=== PATIENT | female | born 1945 | race Caucasian/White ===

== ENCOUNTER 2017-02-12 17:54 | Emergency (ER) | payer MEDICARE, BC ==
--- NOTE | 2017-02-12 19:59 | RAD ---
HISTORY: Fall, left hip pain, lumbar pain COMPARISONS: None TECHNIQUE: Multiple contiguous axial CT scans were obtained of the lumbar spine without intravenous contrast, with coronal and sagittal multiplanar reformations. FINDINGS: SPINAL CANAL: Evaluation of the central canal is limited on CT technique; however, there is no obvious canalicular mass or epidural hemorrhage. ALIGNMENT: There is a levoscoliotic curvature of the spine. VERTEBRAL BODIES: There is osteopenia. There is multilevel anterolateral marginal osteophyte formation. There are sclerotic reactive endplate changes at L2-L3. There is no displaced fracture. JOINTS: There is osteoarthritis of the facet joints MUSCULATURE: Unremarkable INTERVERTEBRAL DISCS: There is diffuse loss of intervertebral disc height throughout the spine. AXIAL IMAGES: T11-T12: There is no osseous neural foraminal area or central canal stenosis. T12-L1: There is no osseous neural foraminal narrowing or central canal stenosis. L1-L2: There is no osseous neural foraminal narrowing or central canal stenosis. L2-L3: There is mild disc bulge. There is moderate right and mild left neuroforaminal narrowing. There is no significant central canal stenosis. L3-L4: There is mild disc bulge. There is no significant neural foraminal narrowing or central canal stenosis. L4-L5: There is broad-based disc bulge. There is no significant neural foraminal narrowing or central canal stenosis. L5-S1: There is bilateral facet hypertrophy. There is no significant neural foraminal narrowing or central canal stenosis. SOFT TISSUES: The visualized soft tissues of the abdomen are unremarkable. OTHER: There is osteoarthritis of the SI joints IMPRESSION: 1. DEGENERATIVE DISC DISEASE AND OSTEOARTHRITIS. 2. NO ACUTE OSSEOUS INJURY TO THE LUMBAR SPINE
--- NOTE | 2017-02-12 20:01 | RAD ---
HISTORY: Fall, left hip pain COMPARISONS: None TECHNIQUE: Multiple contiguous axial CT images are obtained of the pelvis, with coronal and sagittal multiplanar reconstructions, without intravenous contrast administration. FINDINGS: BONE DENSITY: Normal. BONES: There is no displaced fracture. JOINTS: There is osteoarthritis of the SI joints MUSCULATURE: Unremarkable ALIGNMENT: There is no dislocation. SOFT TISSUES: Unremarkable. OTHER FINDINGS: None. IMPRESSION: NO ACUTE OSSEOUS INJURY. IF SYMPTOMS PERSIST, RECOMMEND REPEAT IMAGING.
[2017-02-12] MEDS ORDERED: Ketorolac INJ* 60 MG/2 ML VIAL IM ONE (20:31)
[2017-02-12] MEDS ORDERED: oxyCODONE/Acetamin 5/325 MG* TAB PO ONE (20:31)
[2017-02-12] MEDS ORDERED: HYDROcodone/ACETAMIN 5-325 MG* 1 TAB PO ONE (21:54)
--- NOTE | 2017-02-12 22:14 | ED ---
Olu Ramirez Alfonso, scribed for Alexis Fowler MD on 02/12/17 at 1904 . Adult Trauma - HPI Summary HPI Summary: This patient is a 71 year old female presenting to [facility] for a fall an hour ago. She slipped down 4 stairs onto her left hip. The pain is rated 10/10 in severity. Symptoms aggravated by ambulating and alleviated by nothing. She reports lumbar pain and left hip pain. The patient reports vomiting and dizziness secondary to the fall that have both since resolved. She denies head trauma. The patient is taking Eliquis. - History of Current Complaint Chief Complaint: EDExtremityLower Stated Complaint: FALL/LT HIP PAIN Time Seen by Provider: 02/12/17 18:42 Hx Obtained From: Patient Mechanism of Injury: Fall - down 4 steps an hour ago Ambulatory at the Scene: No - Sx aggravated by ambulation Onset/Duration: Started Hours Ago - 1 hour, Traumatic - Fall, Still Present Onset of Pain: Immediate Onset Severity: Severe Current Severity: Severe Pain Intensity: 10 Pain Scale Used: 0-10 Numeric Location: Abdomen/Pelvis - lumbar pain and left hip pain Aggravating Factor(s): Ambulation Alleviating Factor(s): Nothing Associated Signs & Symptoms: Positive: Nausea/Vomiting, Other: - Positive dizziness, lumbar pain, and left hip pain - Allergy/Home Medications Allergies/Adverse Reactions: Allergies Allergy/AdvReac Type Severity Reaction Status Date / Time Sulfa Antibiotics Allergy Itching Verified 02/12/17 18:33 Home Medications: Home Medications Amiodarone HCl 02/12/17 [History] Amlodipine Besylate 02/12/17 [History] Diclofenac 02/12/17 [History] Eliquis BID 02/12/17 [History] Insulin GLARGINE(*) [Lantus(*)] 38 units SUBCUT 02/12/17 [History] Lasix 02/12/17 [History] Lisinopril DAILY 02/12/17 [History] Metoprolol Tartrate DAILY 02/12/17 [History] Norvasc 10 mg tab 02/12/17 [History] metFORMIN* [Glucophage 500 MG TAB *] 500 mg BID 02/12/17 [History Confirmed ] PMH/Surg Hx/FS Hx/Imm Hx Sensory History: Denies: Hx Deafness Opthamlomology History: Denies: Hx Legally Blind Infectious Disease History: No Infectious Disease History: Denies: Traveled Outside the [place] in Last 30 Days - Family History Known Family History: Negative: Cardiac Disease - Social History Alcohol Use: None Substance Use Type: Reports: None Smoking Status (MU): Never Smoked Tobacco Review of Systems Positive: Vomiting, Nausea Positive: Arthralgia - lumbar pain and left hip pain Neurological: Other - Dizziness All Other Systems Reviewed And Are Negative: Yes Physical Exam Triage Information Reviewed: Yes Vital Signs On Initial Exam: Initial Vitals Temp Pulse Resp BP Pulse Ox 97.2 F 55 20 117/73 100 02/12/17 18:01 02/12/17 18:01 02/12/17 18:01 02/12/17 18:01 02/12/17 18:01 Vital Signs Reviewed: Yes Appearance: Positive: Well-Appearing, No Pain Distress Skin: Positive: Warm, Skin Color Reflects Adequate Perfusion, Dry Head/Face: Positive: Normal Head/Face Inspection Eyes: Positive: Normal ENT: Positive: Normal ENT inspection Neck: Positive: Supple, Nontender Respiratory/Lung Sounds: Positive: Clear to Auscultation, Breath Sounds Present Cardiovascular: Positive: RRR Abdomen Description: Positive: Other: - Tender in the left paralumbar area, the sciatic area, and to pelvic compression Bowel Sounds: Positive: Present Musculoskeletal: Positive: Normal Neurological: Positive: Normal, Sensory/Motor Intact, Alert, Oriented to Person Place, Time, CN Intact II-III Psychiatric: Positive: Normal Diagnostics - Vital Signs Vital Signs Temp Pulse Resp BP Pulse Ox 02/12/17 18:05 97.2 F 55 20 117/73 98 02/12/17 18:01 97.2 F 55 20 117/73 100 - Laboratory Lab Statement: Any lab studies that have been ordered have been reviewed, and results considered in the medical decision making process. - CT Pelvis CT CT Interpretation: No Acute Changes - NO ACUTE OSSEOUS INJURY. IF SYMPTOMS PERSIST, RECOMMEND REPEAT IMAGING. CT Interpretation Completed By: Radiologist Lumbar Spine CT CT Interpretation: No Acute Changes - 1. DEGENERATIVE DISC DISEASE AND OSTEOARTHRITIS. 2. NO ACUTE OSSEOUS INJURY TO THE LUMBAR SPINE CT Interpretation Completed By: Radiologist Re-Evaluation - Re-Evaluation First Eval Re-Evaluation Time: 20:28 Comment: The patient reports still being in pain. She accepts pain medication. Adult Trauma Course/Dx - Course Course Of Treatment: Ms. Albrecht had a mechanical fall on the stairs and came iin C/O left flank and hip/leg pain. Her CT of LS spine and pelvis was negative for acute bony injury. She iimproved enough to walk around with pain medications and I will treat her as an outpatient. - Diagnoses Provider Diagnoses: Low back strain, Sciatic nerve pain Discharge - Discharge Plan Condition: Stable Disposition: HOME Prescriptions: HYDROcodone/ACETAMIN 5-325 MG* [Rio 5-325 TAB*] 1 tab PO Q6H PRN #20 tab MDD 4 PRN Reason: Pain Patient Education Materials: Low Back Strain (ED), Ibuprofen (By mouth) Referrals: [facility] [Provider Group] - 3 Days Additional Instructions: Use ibuprofen 3 times a day. The documentation as recorded by the Olu parks Alfonso accurately reflects the service I personally performed and the decisions made by me, Alexis Fwoler MD.
[2017-02-12 22:21] VITALS: BP 161/66
== END 2017-02-12 22:19 | disposition home or self-care (01) ==
LOC: ED 17:54
DX: M54.30 Sciatica, unspecified side (principal); M54.5 Low back pain
CPT/HCPCS: 72131; 72192; 96372; 99283; A9270-GY; J1885